=== PATIENT | male | born 1930 | race Caucasian/White ===

== ENCOUNTER 2020-01-09 17:42 | Inpatient (IN) ==
[2020-01-09 18:20] LABS: Hematocrit 38.2 % (37.5-50.1); Hemoglobin 12.3 g/dL (12.9-16.9); Mean Corpuscular HGB Conc 32.2 g/dL (31.6-35.5); Mean Corpuscular Hemoglobin 31.7 pg (28.0-33.3); Mean Corpuscular Volume 98.5 fL (83.0-100.0); Platelet Count 309 K/mcL (140-400); Red Blood Count 3.88 M/mcL (4.19-5.50); Red Cell Distribution Width 13.2 % (11.5-14.5); White Blood Count 7.1 K/mcL (4.3-11.1)
[2020-01-09 18:40] LABS: BUN/Creatinine Ratio 40 (6-26); Blood Urea Nitrogen 38 mg/dL (8-23); Calcium 9.8 mg/dL (8.6-10.3); Carbon Dioxide 31 mEq/L (23-29); Chloride 98 mEq/L (98-107); Glucose 128 mg/dL (70-105); Osmolality,Calculated 297 (280-300); Potassium 4.1 mEq/L (3.5-5.1); Sodium 138 mEq/L (136-145); Troponin I < 0.03 ng/mL (< 0.04); eGFR For African Americans > 60 (> 60); eGFR For Non-African Americans > 60 (> 60)
[2020-01-09 19:18] LABS: Bilirubin,Urine Negative (Negative); Blood,Urine Negative (Negative); Clarity,Urine Clear (Clear); Color,Urine Light-Yellow (Yellow); Glucose,Urine (UA) Normal (Normal); Ketones,Urine Negative (Negative); Leukocyte Esterase,Urine Negative (Negative); Nitrite,Urine Negative (Negative); PH,Urine 6.5 pH Units (5.0-8.0); Protein,Urine Negative (Neg-Trace); Specific Gravity,Urine 1.026 (1.010-1.025)
[2020-01-09] MEDS ORDERED: Naloxone 0.4 MG/ML INJ IVP PRN (21:45)
[2020-01-10 03:21] LABS: Hematocrit 37.3 % (37.5-50.1); Mean Corpuscular HGB Conc 32.2 g/dL (31.6-35.5); Mean Corpuscular Volume 99.5 fL (83.0-100.0); Mean Platelet Volume 9.2 fL (9.4-12.4); Platelet Count 315 K/mcL (140-400); Red Blood Count 3.75 M/mcL (4.19-5.50); White Blood Count 7.7 K/mcL (4.3-11.1)
[2020-01-10 03:44] LABS: BUN/Creatinine Ratio 38 (6-26); Blood Urea Nitrogen 32 mg/dL (8-23); Calcium 9.5 mg/dL (8.6-10.3); Carbon Dioxide 29 mEq/L (23-29); Chloride 99 mEq/L (98-107); Glucose 126 mg/dL (70-105); Magnesium 1.8 mg/dL (1.6-2.6); Osmolality,Calculated 294 (280-300); Phosphorous 3.6 mg/dL (2.7-4.5); Potassium 3.7 mEq/L (3.5-5.1); Sodium 138 mEq/L (136-145); eGFR For African Americans > 60 (> 60); eGFR For Non-African Americans > 60 (> 60)
[2020-01-10] MEDS: PARoxetine 20 MG TABLET PO SCH (14:49)
[2020-01-10] MEDS ORDERED: Finasteride 5 MG TABLET PO SCH (21:00)
[2020-01-10] MEDS ORDERED: Ondansetron 4 MG/2 ML VIAL IVP ONE (22:01)
[2020-01-11 04:37] LABS: Basophils % 0.5 %; Eosinophils # 0.2 K/mcL (0.0-0.6); Eosinophils % 2.6 %; Hematocrit 37.3 % (37.5-50.1); Immature Granulocytes % 0.1 % (0-4); Lymphocytes # 1.7 K/mcL (0.6-4.6); Lymphocytes % 21.5 %; Mean Corpuscular HGB Conc 32.2 g/dL (31.6-35.5); Mean Corpuscular Hemoglobin 31.2 pg (28.0-33.3); Mean Corpuscular Volume 96.9 fL (83.0-100.0); Mean Platelet Volume 9.1 fL (9.4-12.4); Monocytes # 1.1 K/mcL (0.0-1.3); Monocytes % 13.9 %; Neutrophils # 4.9 K/mcL (1.6-8.9); Platelet Count 327 K/mcL (140-400); Red Blood Count 3.85 M/mcL (4.19-5.50); Red Cell Distribution Width 13.1 % (11.5-14.5); Segmented Neutrophils % 61.4 %
[2020-01-11 04:53] LABS: BUN/Creatinine Ratio 35 (6-26); Blood Urea Nitrogen 33 mg/dL (8-23); Calcium 9.2 mg/dL (8.6-10.3); Carbon Dioxide 28 mEq/L (23-29); Chloride 101 mEq/L (98-107); Glucose 125 mg/dL (70-105); Osmolality,Calculated 295 (280-300); Potassium 3.8 mEq/L (3.5-5.1); Sodium 138 mEq/L (136-145); eGFR For African Americans > 60 (> 60); eGFR For Non-African Americans > 60 (> 60)
[2020-01-11] MEDS: PARoxetine 20 MG TABLET PO SCH (08:42)
[2020-01-11] MEDS ORDERED: *HR* Propofol 200 MG/20 ML VIAL IVP ONE (12:58)
[2020-01-11] MEDS ORDERED: Lidocaine -MPF 2% 2 ML VIAL ONE (12:58)
[2020-01-11] MEDS ORDERED: *HR* Succinylcholine 200 MG/10 ML VIAL IVP ONE (12:58)
[2020-01-11] MEDS ORDERED: *HR* Rocuronium Bromide 50 MG/5 ML VIAL ONE (12:58)
[2020-01-11] MEDS ORDERED: *HR* FentaNYL (PF) 100 MCG/2 ML VIAL ONE ×2 (12:58→14:33)
[2020-01-11] MEDS ORDERED: Vancomycin 1,000 MG VIAL ONE (13:34)
[2020-01-11] MEDS ORDERED: Ethanol\\Acetic Acid\\Na Ace\\Ben 1,000 ML IRRIG.SOLN IR ONE (13:34)
[2020-01-11] MEDS ORDERED: Lidocaine HCL 4 ML Topical Solution (Laryng-O-Jet Kit Sterile Pak) TP ONE (13:37)
[2020-01-11] MEDS ORDERED: *HR* PHENYLEPHRINE 1,000 MCG/10 ML SYRINGE IVP ONE (14:05)
[2020-01-11] MEDS ORDERED: Tranexamic Acid 1,000 MG/10 ML VIAL ONE (14:10)
[2020-01-11] MEDS ORDERED: ceFAZolin 2,000 MG in Water for inj. (sterile) 20 ML IVP ONE (14:24)
[2020-01-11] MEDS ORDERED: Ondansetron 4 MG/2 ML VIAL ONE (14:29)
[2020-01-11] MEDS ORDERED: Dexamethasone 4 MG/ML VIAL ONE (14:29)
[2020-01-11] MEDS ORDERED: *HR* HYDROMORPHONE 2 MG/ML VIAL ONE (15:46)
[2020-01-11] MEDS ORDERED: *HR* Labetalol 20 MG/4 ML SYRINGE IVP ONE (16:04)
[2020-01-11 17:14] LABS: Hematocrit 38.7 % (37.5-50.1); Hemoglobin 12.2 g/dL (12.9-16.9)
[2020-01-11] MEDS ORDERED: Dextrose Gel 15 GM/37.5 ML TUBE PO PRN ×2 (17:23)
[2020-01-11] MEDS ORDERED: Naloxone 0.4 MG/ML INJ IVP PRN (17:23)
[2020-01-11] MEDS ORDERED: MOM Conc 10 ML UD.LIQ PO PRN (17:23)
[2020-01-11] MEDS ORDERED: *HR* Promethazine 25 MG/ML VIAL IVP PRN (17:23)
[2020-01-11] MEDS ORDERED: *HR* Dextrose 50 % in Water (Vial) 50 ML VIAL IVP PRN (17:23)
[2020-01-11] MEDS ORDERED: *HR* OxyCODONE Immed Rel 5 MG TABLET PO PRN (17:23)
[2020-01-11] MEDS ORDERED: D5% in Water 1,000 ML IVC PRN (17:23)
[2020-01-11] MEDS ORDERED: Sennosides 8.6 MG TABLET PO PRN (17:23)
[2020-01-11] MEDS ORDERED: Ondansetron 4 MG/2 ML VIAL IVP PRN (17:23)
[2020-01-11] MEDS ORDERED: HYDROcodone BIT/Homatropine 5 MG TABLET PO PRN (17:23)
[2020-01-11] MEDS ORDERED: Ringers Solution, Lactated 1,000 ML IVC SCH (17:23)
[2020-01-11] MEDS: Insulin LISPRO 300 UNITS/3 ML VIAL SQ SCH ×2 (17:53→23:57)
[2020-01-11] MEDS: Ascorbic Acid 500 MG TABLET PO SCH (17:53)
[2020-01-11] MEDS ORDERED: Haloperidol Lactate 5 MG/ML VIAL IM PRN (21:27)
[2020-01-11] MEDS: CeFAZolin 2 GM/120 ML BAG IVPB SCH (21:51)
[2020-01-12] MEDS: Finasteride 5 MG TABLET PO SCH ×2 (00:41→20:02)
[2020-01-12] MEDS: CeFAZolin 2 GM/120 ML BAG IVPB SCH (07:09)
[2020-01-12] MEDS: Insulin LISPRO 300 UNITS/3 ML VIAL SQ SCH ×4 (08:12→19:59)
[2020-01-12] MEDS: Ascorbic Acid 500 MG TABLET PO SCH ×2 (08:22→16:10)
[2020-01-12] MEDS: PARoxetine 20 MG TABLET PO SCH (08:23)
[2020-01-12] MEDS: Multivit/Ca/Min/Fe/FA 1 TAB TABLET PO SCH (08:23)
[2020-01-12] MEDS: Aspirin Enteric Coated 81 MG Tablet PO SCH (16:10)
[2020-01-13 02:13] LABS: Hematocrit 32.1 % (37.5-50.1); Mean Corpuscular HGB Conc 32.4 g/dL (31.6-35.5); Mean Corpuscular Hemoglobin 31.3 pg (28.0-33.3); Mean Corpuscular Volume 96.7 fL (83.0-100.0); Mean Platelet Volume 9.2 fL (9.4-12.4); Platelet Count 293 K/mcL (140-400); Red Blood Count 3.32 M/mcL (4.19-5.50); Red Cell Distribution Width 12.8 % (11.5-14.5); White Blood Count 10.7 K/mcL (4.3-11.1)
[2020-01-13 02:14] LABS: Hemoglobin 10.4 g/dL (12.9-16.9)
[2020-01-13 02:17] LABS: BUN/Creatinine Ratio 32 (6-26); Blood Urea Nitrogen 29 mg/dL (8-23); Calcium 8.6 mg/dL (8.6-10.3); Carbon Dioxide 25 mEq/L (23-29); Chloride 102 mEq/L (98-107); Glucose 137 mg/dL (70-105); Osmolality,Calculated 290 (280-300); Potassium 3.7 mEq/L (3.5-5.1); Sodium 136 mEq/L (136-145); eGFR For African Americans > 60 (> 60); eGFR For Non-African Americans > 60 (> 60)
[2020-01-13] MEDS: Insulin LISPRO 300 UNITS/3 ML VIAL SQ SCH ×4 (08:51→20:33)
[2020-01-13] MEDS: Aspirin Enteric Coated 81 MG Tablet PO SCH (08:51)
[2020-01-13] MEDS: Multivit/Ca/Min/Fe/FA 1 TAB TABLET PO SCH (08:52)
[2020-01-13] MEDS: Ascorbic Acid 500 MG TABLET PO SCH ×2 (08:52→16:53)
[2020-01-13] MEDS: PARoxetine 20 MG TABLET PO SCH (08:52)
[2020-01-13] MEDS ORDERED: Haloperidol Lactate 5 MG/ML VIAL IVP ONE (19:09)
[2020-01-13] MEDS: Finasteride 5 MG TABLET PO SCH (20:35)
[2020-01-14] MEDS: Insulin LISPRO 300 UNITS/3 ML VIAL SQ SCH (09:50)
[2020-01-14] MEDS: Ascorbic Acid 500 MG TABLET PO SCH (09:55)
[2020-01-14] MEDS: Aspirin Enteric Coated 81 MG Tablet PO SCH (09:55)
[2020-01-14] MEDS: Multivit/Ca/Min/Fe/FA 1 TAB TABLET PO SCH (09:55)
[2020-01-14] MEDS: PARoxetine 20 MG TABLET PO SCH (09:55)
[2020-01-14 11:08] VITALS: BP 145/87
== END 2020-01-14 13:50 | disposition home health service (06) | DRG 468 ==
LOC: 3ANU 17:42 → EMEROOARM 17:42 → SUATTDRO 21:26 → 3NENU 21:38
PROVIDERS: ADMIT Internal Medicine; ATTEND Internal Medicine

== ENCOUNTER 2020-03-12 16:10 | Inpatient (IN) ==
[2020-03-12] MEDS ORDERED: *HR* Propofol 200 MG/20 ML VIAL IVP ONE (16:44)
[2020-03-12 18:29] LABS: Basophils % 0.5 %; Eosinophils # 0.2 K/mcL (0.0-0.6); Eosinophils % 2.3 %; Hematocrit 35.7 % (37.5-50.1); Hemoglobin 11.3 g/dL (12.9-16.9); Immature Granulocytes % 0.2 % (0-4); Lymphocytes % 12.1 %; Mean Corpuscular HGB Conc 31.7 g/dL (31.6-35.5); Mean Corpuscular Hemoglobin 31.1 pg (28.0-33.3); Mean Corpuscular Volume 98.3 fL (83.0-100.0); Mean Platelet Volume 9.5 fL (9.4-12.4); Monocytes # 0.9 K/mcL (0.0-1.3); Monocytes % 10.6 %; Neutrophils # 6.4 K/mcL (1.6-8.9); Platelet Count 237 K/mcL (140-400); Red Blood Count 3.63 M/mcL (4.19-5.50); Red Cell Distribution Width 12.8 % (11.5-14.5); Segmented Neutrophils % 74.3 %; White Blood Count 8.6 K/mcL (4.3-11.1)
[2020-03-12 18:45] LABS: BUN/Creatinine Ratio 30 (6-26); Blood Urea Nitrogen 25 mg/dL (8-23); Calcium 9.4 mg/dL (8.6-10.3); Carbon Dioxide 30 mEq/L (23-29); Chloride 103 mEq/L (98-107); Glucose 116 mg/dL (70-105); Osmolality,Calculated 293 (280-300); Potassium 3.7 mEq/L (3.5-5.1); Sodium 139 mEq/L (136-145); eGFR For African Americans > 60 (> 60); eGFR For Non-African Americans > 60 (> 60)
[2020-03-12] MEDS ORDERED: Ondansetron 4 MG/2 ML VIAL IVP PRN (20:24)
[2020-03-12] MEDS ORDERED: Ibuprofen 400 MG TABLET PO PRN (20:24)
[2020-03-12] MEDS ORDERED: Ketorolac 30 MG/ML VIAL IVP PRN (20:24)
[2020-03-12 20:42] LABS: Prothrombin Time 11.8 Seconds (9.4-12.1)
[2020-03-12] MEDS ORDERED: Naloxone 0.4 MG/ML INJ IVP PRN (20:42)
[2020-03-12 20:45] LABS: Activated Partial Thrombo Time 31.5 Seconds (26.0-36.0)
[2020-03-12 20:47] LABS: Magnesium 1.7 mg/dL (1.6-2.6); Phosphorous 3.2 mg/dL (2.7-4.5)
[2020-03-12] MEDS ORDERED: Acetaminophen 325 MG TABLET PO PRN (21:20)
[2020-03-12] MEDS: 0.9 % Sodium Chloride 1,000 ML IVC SCH (23:32)
[2020-03-13 06:19] LABS: Basophils % 0.4 %; Eosinophils # 0.2 K/mcL (0.0-0.6); Eosinophils % 2.3 %; Hematocrit 34.3 % (37.5-50.1); Immature Granulocytes % 0.1 % (0-4); Lymphocytes # 1.4 K/mcL (0.6-4.6); Lymphocytes % 18.9 %; Mean Corpuscular HGB Conc 32.1 g/dL (31.6-35.5); Mean Corpuscular Hemoglobin 31.2 pg (28.0-33.3); Mean Corpuscular Volume 97.2 fL (83.0-100.0); Mean Platelet Volume 9.4 fL (9.4-12.4); Monocytes # 0.9 K/mcL (0.0-1.3); Monocytes % 12.5 %; Neutrophils # 4.8 K/mcL (1.6-8.9); Platelet Count 226 K/mcL (140-400); Red Blood Count 3.53 M/mcL (4.19-5.50); Segmented Neutrophils % 65.8 %; White Blood Count 7.4 K/mcL (4.3-11.1)
[2020-03-13 06:36] LABS: Magnesium 1.6 mg/dL (1.6-2.6); Phosphorous 3.3 mg/dL (2.7-4.5)
[2020-03-13 06:38] LABS: BUN/Creatinine Ratio 26 (6-26); Blood Urea Nitrogen 21 mg/dL (8-23); Calcium 8.9 mg/dL (8.6-10.3); Carbon Dioxide 29 mEq/L (23-29); Chloride 104 mEq/L (98-107); Glucose 116 mg/dL (70-105); Osmolality,Calculated 292 (280-300); Potassium 3.8 mEq/L (3.5-5.1); Sodium 139 mEq/L (136-145); eGFR For African Americans > 60 (> 60); eGFR For Non-African Americans > 60 (> 60)
[2020-03-13] MEDS: *HR* Heparin 5,000 UNIT/ML VIAL SQ SCH ×2 (06:41→21:24)
[2020-03-13 14:16] LABS: Adenovirus Not Detected (Not Detect); Coronavirus 229E Not Detected (Not Detect); Coronavirus HKU1 Not Detected (Not Detect); Coronavirus NL63 Not Detected (Not Detect); Coronavirus OC43 Not Detected (Not Detect); Human Metapneumovirus Not Detected (Not Detect); Human Rhinovirus/Enterovirus Not Detected (Not Detect); Influenza A Subtype 2009 H1 Not Detected (Not Detect); Influenza B Not Detected (Not Detect); Parainfluenza Virus 1 Not Detected (Not Detect); Parainfluenza Virus 2 Not Detected (Not Detect); Parainfluenza Virus 3 Not Detected (Not Detect); Parainfluenza Virus 4 Not Detected (Not Detect); SARS-CoV-2 Not Detected (Not Detect)
[2020-03-13 14:17] LABS: Bordetella Pertussis Not Detected (Not Detect); Chlamydophila pneumoniae Not Detected (Not Detect); Mycoplasma pneumoniae Not Detected (Not Detect); Respiratory Syncytial Virus Not Detected (Not Detect)
[2020-03-13] MEDS ORDERED: Ethanol\\Acetic Acid\\Na Ace\\Ben 1,000 ML IRRIG.SOLN IR ONE (17:45)
[2020-03-13] MEDS ORDERED: Ondansetron 4 MG/2 ML VIAL ONE (17:53)
[2020-03-13] MEDS ORDERED: *HR* PHENYLEPHRINE 1,000 MCG/10 ML SYRINGE IVP ONE (17:53)
[2020-03-13] MEDS ORDERED: Lidocaine -MPF 4% 5 ML AMPUL ONE (17:53)
[2020-03-13] MEDS ORDERED: *HR* Propofol 200 MG/20 ML VIAL IVP ONE (17:53)
[2020-03-13] MEDS ORDERED: Lidocaine -MPF 2% 2 ML VIAL ONE (17:53)
[2020-03-13] MEDS ORDERED: *HR* FentaNYL (PF) 100 MCG/2 ML VIAL ONE (17:54)
[2020-03-13] MEDS ORDERED: *HR* HYDROmorphone PF 0.5 MG/0.5 ML SYRINGE IVP PRN (18:08)
[2020-03-13] MEDS ORDERED: Tranexamic Acid 1,000 MG/10 ML VIAL ONE (18:35)
[2020-03-13] MEDS ORDERED: Vancomycin 1,000 MG VIAL ONE (18:36)
[2020-03-13] MEDS ORDERED: ceFAZolin 2,000 MG in Water for inj. (sterile) 20 ML IVP ONE (18:56)
[2020-03-13] MEDS ORDERED: *HR* HYDROMORPHONE 2 MG/ML VIAL ONE (19:00)
[2020-03-13] MEDS ORDERED: Dexamethasone 4 MG/ML VIAL ONE (19:05)
[2020-03-13 20:15] LABS: Hematocrit 36.1 % (37.5-50.1); Hemoglobin 11.5 g/dL (12.9-16.9)
[2020-03-13] MEDS ORDERED: Naloxone 0.4 MG/ML INJ IVP PRN ×2 (20:50)
[2020-03-13] MEDS ORDERED: Ondansetron 4 MG/2 ML VIAL IVP PRN ×2 (20:50)
[2020-03-13] MEDS ORDERED: Ringers Solution, Lactated 1,000 ML IVC SCH (20:50)
[2020-03-13] MEDS ORDERED: *HR* Promethazine 25 MG/ML VIAL IVP PRN (20:50)
[2020-03-13] MEDS ORDERED: Acetaminophen 325 MG TABLET PO PRN (20:50)
[2020-03-13] MEDS ORDERED: Sennosides 8.6 MG TABLET PO PRN (20:50)
[2020-03-13] MEDS ORDERED: MOM Conc 10 ML UD.LIQ PO PRN (20:50)
[2020-03-13] MEDS ORDERED: Finasteride 5 MG TABLET PO SCH (21:00)
[2020-03-13] MEDS: 0.9 % Sodium Chloride 1,000 ML IVC SCH (21:24)
[2020-03-13] MEDS ORDERED: Vancomycin 1,250 MG/262.5 ML IV.SOLN IVPB ONE (22:00)
[2020-03-13] MEDS: Finasteride 5 MG TABLET PO SCH (22:03)
[2020-03-13] MEDS: CeFAZolin 2 GM/120 ML BAG IVPB SCH (23:15)
[2020-03-14] MEDS: Ascorbic Acid 500 MG TABLET PO SCH ×2 (08:49→18:55)
[2020-03-14] MEDS: Losartan/HCTZ 50-12.5 TABLET PO SCH (08:49)
[2020-03-14] MEDS: PARoxetine 20 MG TABLET PO SCH (08:49)
[2020-03-14] MEDS: Multivit/Ca/Min/Fe/FA 1 TAB TABLET PO SCH (08:50)
[2020-03-14] MEDS: CeFAZolin 2 GM/120 ML BAG IVPB SCH (08:50)
[2020-03-14] MEDS ORDERED: Mirabegron [Myrbetriq] 50 MG PO SCH (09:00)
[2020-03-14] MEDS ORDERED: Losartan/HCTZ 50-12.5 TABLET PO SCH (09:00)
[2020-03-14] MEDS ORDERED: Multivit/Ca/Min/Fe/FA 1 TAB TABLET PO SCH ×2 (09:00)
[2020-03-14] MEDS ORDERED: PARoxetine 20 MG TABLET PO SCH (09:00)
[2020-03-14] MEDS ORDERED: Aspirin Enteric Coated 81 MG Tablet PO SCH (09:00)
[2020-03-14 09:25] LABS: Basophils % 0.1 %; Hematocrit 35.9 % (37.5-50.1); Hemoglobin 11.4 g/dL (12.9-16.9); Immature Granulocytes % 0.6 % (0-4); Lymphocytes # 0.9 K/mcL (0.6-4.6); Lymphocytes % 6.9 %; Mean Corpuscular HGB Conc 31.8 g/dL (31.6-35.5); Mean Corpuscular Hemoglobin 31.4 pg (28.0-33.3); Mean Corpuscular Volume 98.9 fL (83.0-100.0); Mean Platelet Volume 9.8 fL (9.4-12.4); Monocytes # 1.3 K/mcL (0.0-1.3); Monocytes % 10.1 %; Neutrophils # 10.3 K/mcL (1.6-8.9); Platelet Count 229 K/mcL (140-400); Red Blood Count 3.63 M/mcL (4.19-5.50); Red Cell Distribution Width 13.1 % (11.5-14.5); Segmented Neutrophils % 82.3 %; White Blood Count 12.5 K/mcL (4.3-11.1)
[2020-03-14] MEDS: (Mirabegron [Myrbetriq] 50 MG) PO SCH (10:04)
[2020-03-14 10:49] LABS: BUN/Creatinine Ratio 29 (6-26); Blood Urea Nitrogen 25 mg/dL (8-23); Calcium 8.7 mg/dL (8.6-10.3); Carbon Dioxide 25 mEq/L (23-29); Chloride 102 mEq/L (98-107); Glucose 153 mg/dL (70-105); Osmolality,Calculated 293 (280-300); Potassium 4.6 mEq/L (3.5-5.1); Sodium 138 mEq/L (136-145); eGFR For African Americans > 60 (> 60); eGFR For Non-African Americans > 60 (> 60)
[2020-03-14] MEDS: Aspirin Enteric Coated 81 MG Tablet PO SCH (18:55)
[2020-03-14] MEDS: Finasteride 5 MG TABLET PO SCH (21:24)
[2020-03-15] MEDS: Losartan/HCTZ 50-12.5 TABLET PO SCH (08:55)
[2020-03-15] MEDS: PARoxetine 20 MG TABLET PO SCH (08:56)
[2020-03-15] MEDS: Aspirin Enteric Coated 81 MG Tablet PO SCH (08:56)
[2020-03-15] MEDS: Multivit/Ca/Min/Fe/FA 1 TAB TABLET PO SCH (08:59)
[2020-03-15] MEDS: Ascorbic Acid 500 MG TABLET PO SCH (08:59)
[2020-03-15] MEDS: (Mirabegron [Myrbetriq] 50 MG) PO SCH (09:00)
[2020-03-15 10:38] LABS: Basophils % 0.2 %; Eosinophils # 0.1 K/mcL (0.0-0.6); Eosinophils % 1.3 %; Hematocrit 33.7 % (37.5-50.1); Hemoglobin 10.7 g/dL (12.9-16.9); Immature Granulocytes % 0.3 % (0-4); Lymphocytes # 1.7 K/mcL (0.6-4.6); Lymphocytes % 17.7 %; Mean Corpuscular HGB Conc 31.8 g/dL (31.6-35.5); Mean Corpuscular Hemoglobin 31.8 pg (28.0-33.3); Mean Corpuscular Volume 100.3 fL (83.0-100.0); Mean Platelet Volume 9.8 fL (9.4-12.4); Monocytes # 1.4 K/mcL (0.0-1.3); Monocytes % 14.9 %; Neutrophils # 6.1 K/mcL (1.6-8.9); Platelet Count 215 K/mcL (140-400); Red Blood Count 3.36 M/mcL (4.19-5.50); Red Cell Distribution Width 13.2 % (11.5-14.5); Segmented Neutrophils % 65.6 %; White Blood Count 9.4 K/mcL (4.3-11.1)
[2020-03-15 10:46] LABS: BUN/Creatinine Ratio 33 (6-26); Blood Urea Nitrogen 33 mg/dL (8-23); Calcium 8.8 mg/dL (8.6-10.3); Carbon Dioxide 27 mEq/L (23-29); Chloride 99 mEq/L (98-107); Glucose 138 mg/dL (70-105); Osmolality,Calculated 285 (280-300); Potassium 3.6 mEq/L (3.5-5.1); Sodium 133 mEq/L (136-145); eGFR For African Americans > 60 (> 60); eGFR For Non-African Americans > 60 (> 60)
[2020-03-15 10:59] VITALS: BP 112/55
[2020-03-15] MEDS ORDERED: FLU Vac QV 20-21 (6Month+)/PF 0.5 ML SYRINGE IM ONE (14:34)
== END 2020-03-15 15:23 | disposition home health service (06) | DRG 468 ==
LOC: 3NENU 16:10 → EMEROOARM 16:10 → SUATTDRO 18:58 → 3NENU 19:58
PROVIDERS: ADMIT Pharmacist; ATTEND Family Medicine

== ENCOUNTER 2020-03-15 18:08 | Observation (INO) ==
[2020-03-15] MEDS ORDERED: *HR* OxyCODONE/APAP 5/325 TABLET PO ONE (18:27)
[2020-03-15 19:21] LABS: Basophils % 0.3 %; Eosinophils # 0.2 K/mcL (0.0-0.6); Eosinophils % 1.6 %; Hematocrit 32.6 % (37.5-50.1); Hemoglobin 10.4 g/dL (12.9-16.9); Immature Granulocytes % 0.3 % (0-4); Lymphocytes # 0.8 K/mcL (0.6-4.6); Lymphocytes % 9.1 %; Mean Corpuscular HGB Conc 31.9 g/dL (31.6-35.5); Mean Corpuscular Hemoglobin 31.1 pg (28.0-33.3); Mean Corpuscular Volume 97.6 fL (83.0-100.0); Mean Platelet Volume 9.4 fL (9.4-12.4); Monocytes # 1.2 K/mcL (0.0-1.3); Platelet Count 224 K/mcL (140-400); Red Blood Count 3.34 M/mcL (4.19-5.50); Red Cell Distribution Width 13.1 % (11.5-14.5); Segmented Neutrophils % 75.7 %; White Blood Count 9.2 K/mcL (4.3-11.1)
[2020-03-15 19:29] LABS: BUN/Creatinine Ratio 33 (6-26); Blood Urea Nitrogen 34 mg/dL (8-23); Carbon Dioxide 28 mEq/L (23-29); Chloride 99 mEq/L (98-107); Glucose 152 mg/dL (70-105); Osmolality,Calculated 289 (280-300); Potassium 3.6 mEq/L (3.5-5.1); Sodium 134 mEq/L (136-145); eGFR For African Americans > 60 (> 60); eGFR For Non-African Americans > 60 (> 60)
[2020-03-15] MEDS ORDERED: Acetaminophen 325 MG TABLET PO PRN (21:06)
[2020-03-15] MEDS ORDERED: *HR* Promethazine 25 MG/ML VIAL IVP PRN (21:06)
[2020-03-15] MEDS ORDERED: Naloxone 0.4 MG/ML INJ IVP PRN (21:06)
[2020-03-15] MEDS: *HR* Enoxaparin 30 MG/0.3 ML SYRINGE SQ SCH (22:58)
[2020-03-15] MEDS: 0.9 % Sodium Chloride 1,000 ML IVC SCH (22:58)
[2020-03-16] MEDS: 0.9 % Sodium Chloride 1,000 ML IVC SCH (08:06)
[2020-03-16] MEDS: *HR* Enoxaparin 30 MG/0.3 ML SYRINGE SQ SCH (08:06)
[2020-03-16 08:20] LABS: Hemoglobin 9.7 g/dL (12.9-16.9); Mean Corpuscular HGB Conc 32.3 g/dL (31.6-35.5); Mean Corpuscular Hemoglobin 31.2 pg (28.0-33.3); Mean Corpuscular Volume 96.5 fL (83.0-100.0); Mean Platelet Volume 9.4 fL (9.4-12.4); Platelet Count 217 K/mcL (140-400); Red Blood Count 3.11 M/mcL (4.19-5.50); Red Cell Distribution Width 12.8 % (11.5-14.5); White Blood Count 7.4 K/mcL (4.3-11.1)
[2020-03-16 08:29] LABS: INR 1.3; Prothrombin Time 14.2 Seconds (9.4-12.1)
[2020-03-16 08:40] LABS: BUN/Creatinine Ratio 31 (6-26); Blood Urea Nitrogen 24 mg/dL (8-23); Calcium 8.7 mg/dL (8.6-10.3); Carbon Dioxide 29 mEq/L (23-29); Chloride 102 mEq/L (98-107); Glucose 118 mg/dL (70-105); Magnesium 1.7 mg/dL (1.6-2.6); Osmolality,Calculated 291 (280-300); Phosphorous 2.5 mg/dL (2.7-4.5); Potassium 3.3 mEq/L (3.5-5.1); Sodium 138 mEq/L (136-145); eGFR For African Americans > 60 (> 60); eGFR For Non-African Americans > 60 (> 60)
[2020-03-16] MEDS ORDERED: Potassium Chloride Elixir 20 MEQ/15 ML UDC PO ONE (10:59)
[2020-03-16] MEDS ORDERED: Dextrose Gel 15 GM/37.5 ML TUBE PO PRN ×2 (16:08)
[2020-03-16] MEDS ORDERED: D5% in Water 1,000 ML IVC PRN (16:08)
[2020-03-16] MEDS ORDERED: *HR* Dextrose 50 % in Water (Vial) 50 ML VIAL IVP PRN (16:08)
[2020-03-16] MEDS: Insulin LISPRO 300 UNITS/3 ML VIAL SQ SCH ×2 (16:13→21:53)
[2020-03-17 05:31] LABS: Hematocrit 28.4 % (37.5-50.1); Hemoglobin 9.2 g/dL (12.9-16.9); Mean Corpuscular HGB Conc 32.4 g/dL (31.6-35.5); Mean Corpuscular Hemoglobin 31.9 pg (28.0-33.3); Mean Corpuscular Volume 98.6 fL (83.0-100.0); Mean Platelet Volume 9.6 fL (9.4-12.4); Platelet Count 231 K/mcL (140-400); Red Blood Count 2.88 M/mcL (4.19-5.50); Red Cell Distribution Width 12.8 % (11.5-14.5); White Blood Count 6.8 K/mcL (4.3-11.1)
[2020-03-17 05:46] LABS: BUN/Creatinine Ratio 31 (6-26); Blood Urea Nitrogen 22 mg/dL (8-23); Calcium 8.3 mg/dL (8.6-10.3); Carbon Dioxide 29 mEq/L (23-29); Chloride 105 mEq/L (98-107); Glucose 111 mg/dL (70-105); Osmolality,Calculated 294 (280-300); Potassium 3.3 mEq/L (3.5-5.1); Sodium 140 mEq/L (136-145); eGFR For African Americans > 60 (> 60); eGFR For Non-African Americans > 60 (> 60)
[2020-03-17] MEDS ORDERED: Potassium Chloride Elixir 20 MEQ/15 ML UDC PO ONE (07:15)
[2020-03-17] MEDS: Insulin LISPRO 300 UNITS/3 ML VIAL SQ SCH ×4 (09:21→21:03)
[2020-03-17] MEDS: *HR* Enoxaparin 30 MG/0.3 ML SYRINGE SQ SCH (09:33)
[2020-03-18 05:39] LABS: BUN/Creatinine Ratio 30 (6-26); Blood Urea Nitrogen 20 mg/dL (8-23); Calcium 8.5 mg/dL (8.6-10.3); Carbon Dioxide 26 mEq/L (23-29); Chloride 105 mEq/L (98-107); Glucose 123 mg/dL (70-105); Hematocrit 30.3 % (37.5-50.1); Hemoglobin 9.8 g/dL (12.9-16.9); Mean Corpuscular HGB Conc 32.3 g/dL (31.6-35.5); Mean Corpuscular Hemoglobin 31.2 pg (28.0-33.3); Mean Corpuscular Volume 96.5 fL (83.0-100.0); Mean Platelet Volume 9.5 fL (9.4-12.4); Osmolality,Calculated 290 (280-300); Platelet Count 266 K/mcL (140-400); Potassium 3.7 mEq/L (3.5-5.1); Red Blood Count 3.14 M/mcL (4.19-5.50); Red Cell Distribution Width 12.8 % (11.5-14.5); Sodium 138 mEq/L (136-145); White Blood Count 7.1 K/mcL (4.3-11.1); eGFR For African Americans > 60 (> 60); eGFR For Non-African Americans > 60 (> 60)
[2020-03-18] MEDS: *HR* Enoxaparin 40 MG/0.4 ML SYRINGE SQ SCH (05:56)
[2020-03-18] MEDS: Insulin LISPRO 300 UNITS/3 ML VIAL SQ SCH ×4 (09:01→21:00)
[2020-03-19] MEDS: *HR* Enoxaparin 40 MG/0.4 ML SYRINGE SQ SCH (05:44)
[2020-03-19] MEDS: Insulin LISPRO 300 UNITS/3 ML VIAL SQ SCH ×4 (08:02→21:41)
[2020-03-19] MEDS ORDERED: NON-FORMULARY MEDICATION 1 EACH EACH (Losartan/Hydrochlorothiazide [Hyzaar 100-12.5 Tablet PO SCH (09:00)
[2020-03-19] MEDS: Multivit/Ca/Min/Fe/FA 1 TAB TABLET PO SCH (09:08)
[2020-03-19] MEDS: PARoxetine 20 MG TABLET PO SCH (09:08)
[2020-03-19] MEDS: hydroCHLOROthiazide 25 MG TABLET PO SCH (09:08)
[2020-03-19 09:50] LABS: BUN/Creatinine Ratio 28 (6-26); Blood Urea Nitrogen 22 mg/dL (8-23); Calcium 9.1 mg/dL (8.6-10.3); Carbon Dioxide 29 mEq/L (23-29); Chloride 103 mEq/L (98-107); Glucose 121 mg/dL (70-105); Osmolality,Calculated 293 (280-300); Potassium 3.8 mEq/L (3.5-5.1); Sodium 139 mEq/L (136-145); eGFR For African Americans > 60 (> 60); eGFR For Non-African Americans > 60 (> 60)
[2020-03-19 10:55] LABS: Hematocrit 34.7 % (37.5-50.1); Hemoglobin 11.1 g/dL (12.9-16.9); Mean Corpuscular Hemoglobin 31.4 pg (28.0-33.3); Mean Platelet Volume 9.2 fL (9.4-12.4); Platelet Count 316 K/mcL (140-400); Red Blood Count 3.54 M/mcL (4.19-5.50); Red Cell Distribution Width 12.8 % (11.5-14.5); White Blood Count 7.8 K/mcL (4.3-11.1)
[2020-03-19] MEDS: Finasteride 5 MG TABLET PO SCH (21:41)
[2020-03-20] MEDS: *HR* Enoxaparin 40 MG/0.4 ML SYRINGE SQ SCH (04:43)
[2020-03-20] MEDS: Insulin LISPRO 300 UNITS/3 ML VIAL SQ SCH ×4 (07:32→21:05)
[2020-03-20] MEDS: PARoxetine 20 MG TABLET PO SCH (07:40)
[2020-03-20] MEDS: hydroCHLOROthiazide 25 MG TABLET PO SCH (07:40)
[2020-03-20] MEDS: Multivit/Ca/Min/Fe/FA 1 TAB TABLET PO SCH (07:41)
[2020-03-20] MEDS: Finasteride 5 MG TABLET PO SCH (21:01)
[2020-03-21 02:16] LABS: Hematocrit 31.5 % (37.5-50.1); Hemoglobin 10.2 g/dL (12.9-16.9); Mean Corpuscular HGB Conc 32.4 g/dL (31.6-35.5); Mean Corpuscular Volume 95.7 fL (83.0-100.0); Mean Platelet Volume 9.2 fL (9.4-12.4); Platelet Count 320 K/mcL (140-400); Red Blood Count 3.29 M/mcL (4.19-5.50); Red Cell Distribution Width 12.9 % (11.5-14.5); White Blood Count 7.4 K/mcL (4.3-11.1)
[2020-03-21 02:35] LABS: BUN/Creatinine Ratio 28 (6-26); Blood Urea Nitrogen 29 mg/dL (8-23); Calcium 8.7 mg/dL (8.6-10.3); Carbon Dioxide 26 mEq/L (23-29); Chloride 102 mEq/L (98-107); Glucose 122 mg/dL (70-105); Osmolality,Calculated 293 (280-300); Potassium 3.8 mEq/L (3.5-5.1); Sodium 138 mEq/L (136-145); eGFR For African Americans > 60 (> 60); eGFR For Non-African Americans > 60 (> 60)
[2020-03-21] MEDS: *HR* Enoxaparin 40 MG/0.4 ML SYRINGE SQ SCH (05:39)
[2020-03-21] MEDS: Insulin LISPRO 300 UNITS/3 ML VIAL SQ SCH ×2 (08:39→11:49)
[2020-03-21] MEDS: hydroCHLOROthiazide 25 MG TABLET PO SCH (08:44)
[2020-03-21] MEDS: Multivit/Ca/Min/Fe/FA 1 TAB TABLET PO SCH (08:45)
[2020-03-21] MEDS: PARoxetine 20 MG TABLET PO SCH (08:45)
[2020-03-21 11:21] VITALS: BP 103/61
== END 2020-03-21 16:06 ==
LOC: 3BNU 18:08 → EMEROOARM 18:08 → SUATTDRO 20:36 → 3BNU 21:01
PROVIDERS: ADMIT Internal Medicine; ATTEND Nurse Practitioner Adult Health

== ENCOUNTER 2020-03-29 12:01 | Observation (INO) ==
[2020-03-29 13:21] LABS: Basophils % 0.5 %; Eosinophils # 0.2 K/mcL (0.0-0.6); Eosinophils % 1.9 %; Hematocrit 34.9 % (37.5-50.1); Immature Granulocytes % 0.5 % (0-4); Lymphocytes # 1.7 K/mcL (0.6-4.6); Lymphocytes % 22.4 %; Mean Corpuscular HGB Conc 31.5 g/dL (31.6-35.5); Mean Corpuscular Hemoglobin 30.4 pg (28.0-33.3); Mean Corpuscular Volume 96.4 fL (83.0-100.0); Mean Platelet Volume 9.2 fL (9.4-12.4); Monocytes # 0.7 K/mcL (0.0-1.3); Monocytes % 8.4 %; Neutrophils # 5.1 K/mcL (1.6-8.9); Platelet Count 396 K/mcL (140-400); Red Blood Count 3.62 M/mcL (4.19-5.50); Red Cell Distribution Width 13.2 % (11.5-14.5); Segmented Neutrophils % 66.3 %; White Blood Count 7.8 K/mcL (4.3-11.1)
[2020-03-29 13:30] LABS: BUN/Creatinine Ratio 36 (6-26); Blood Urea Nitrogen 35 mg/dL (8-23); Calcium 9.5 mg/dL (8.6-10.3); Carbon Dioxide 29 mEq/L (23-29); Chloride 103 mEq/L (98-107); Glucose 133 mg/dL (70-105); Osmolality,Calculated 294 (280-300); Potassium 4.3 mEq/L (3.5-5.1); Sodium 137 mEq/L (136-145); eGFR For African Americans > 60 (> 60); eGFR For Non-African Americans > 60 (> 60)
[2020-03-29] MEDS ORDERED: Naloxone 0.4 MG/ML INJ IVP PRN (15:29)
[2020-03-29] MEDS: 0.9 % Sodium Chloride 1,000 ML IVC SCH (16:02)
[2020-03-29] MEDS: *HR* OxyCODONE/APAP 10/325 TABLET PO PRN (16:04)
[2020-03-30] MEDS: 0.9 % Sodium Chloride 1,000 ML IVC SCH ×2 (05:31→18:30)
[2020-03-30] MEDS: *HR* OxyCODONE/APAP 10/325 TABLET PO PRN (06:28)
[2020-03-30 09:07] LABS: Basophils % 0.6 %; Eosinophils # 0.2 K/mcL (0.0-0.6); Eosinophils % 3.4 %; Hematocrit 32.6 % (37.5-50.1); Hemoglobin 10.3 g/dL (12.9-16.9); Immature Granulocytes % 0.3 % (0-4); Lymphocytes # 1.5 K/mcL (0.6-4.6); Lymphocytes % 22.3 %; Mean Corpuscular HGB Conc 31.6 g/dL (31.6-35.5); Mean Corpuscular Hemoglobin 31.3 pg (28.0-33.3); Mean Corpuscular Volume 99.1 fL (83.0-100.0); Mean Platelet Volume 9.2 fL (9.4-12.4); Monocytes # 0.7 K/mcL (0.0-1.3); Monocytes % 11.1 %; Neutrophils # 4.2 K/mcL (1.6-8.9); Platelet Count 367 K/mcL (140-400); Red Blood Count 3.29 M/mcL (4.19-5.50); Red Cell Distribution Width 13.1 % (11.5-14.5); Segmented Neutrophils % 62.3 %; White Blood Count 6.7 K/mcL (4.3-11.1)
[2020-03-30 09:28] LABS: BUN/Creatinine Ratio 34 (6-26); Blood Urea Nitrogen 29 mg/dL (8-23); Calcium 8.9 mg/dL (8.6-10.3); Carbon Dioxide 27 mEq/L (23-29); Chloride 105 mEq/L (98-107); Glucose 118 mg/dL (70-105); Osmolality,Calculated 291 (280-300); Potassium 4.1 mEq/L (3.5-5.1); Sodium 137 mEq/L (136-145); eGFR For African Americans > 60 (> 60); eGFR For Non-African Americans > 60 (> 60)
[2020-03-30] MEDS: Finasteride 5 MG TABLET PO SCH (20:05)
[2020-03-31 02:48] LABS: Hematocrit 33.1 % (37.5-50.1); Hemoglobin 10.5 g/dL (12.9-16.9); Mean Corpuscular HGB Conc 31.7 g/dL (31.6-35.5); Mean Corpuscular Hemoglobin 31.2 pg (28.0-33.3); Mean Corpuscular Volume 98.2 fL (83.0-100.0); Mean Platelet Volume 9.4 fL (9.4-12.4); Platelet Count 359 K/mcL (140-400); Red Blood Count 3.37 M/mcL (4.19-5.50); White Blood Count 8.6 K/mcL (4.3-11.1)
[2020-03-31 02:51] LABS: BUN/Creatinine Ratio 30 (6-26); Blood Urea Nitrogen 28 mg/dL (8-23); Calcium 8.7 mg/dL (8.6-10.3); Carbon Dioxide 26 mEq/L (23-29); Chloride 106 mEq/L (98-107); Glucose 127 mg/dL (70-105); Magnesium 1.6 mg/dL (1.6-2.6); Osmolality,Calculated 293 (280-300); Potassium 3.9 mEq/L (3.5-5.1); Sodium 138 mEq/L (136-145); eGFR For African Americans > 60 (> 60); eGFR For Non-African Americans > 60 (> 60)
[2020-03-31] MEDS: 0.9 % Sodium Chloride 1,000 ML IVC SCH ×2 (08:09→23:47)
[2020-03-31] MEDS: Aspirin Enteric Coated 81 MG Tablet PO SCH (08:11)
[2020-03-31] MEDS: Losartan/HCTZ 50-12.5 TABLET PO SCH (08:11)
[2020-03-31] MEDS: PARoxetine 20 MG TABLET PO SCH (08:11)
[2020-03-31] MEDS: Finasteride 5 MG TABLET PO SCH (20:39)
[2020-03-31] MEDS: *HR* OxyCODONE/APAP 10/325 TABLET PO PRN (20:39)
[2020-04-01 07:39] LABS: Hematocrit 33.2 % (37.5-50.1); Hemoglobin 10.5 g/dL (12.9-16.9); Mean Corpuscular HGB Conc 31.6 g/dL (31.6-35.5); Mean Corpuscular Volume 97.9 fL (83.0-100.0); Mean Platelet Volume 9.4 fL (9.4-12.4); Platelet Count 323 K/mcL (140-400); Red Blood Count 3.39 M/mcL (4.19-5.50)
[2020-04-01 08:03] LABS: BUN/Creatinine Ratio 27 (6-26); Blood Urea Nitrogen 23 mg/dL (8-23); Calcium 8.9 mg/dL (8.6-10.3); Carbon Dioxide 28 mEq/L (23-29); Chloride 107 mEq/L (98-107); Glucose 107 mg/dL (70-105); Osmolality,Calculated 292 (280-300); Potassium 3.6 mEq/L (3.5-5.1); Sodium 139 mEq/L (136-145); eGFR For African Americans > 60 (> 60); eGFR For Non-African Americans > 60 (> 60)
[2020-04-01] MEDS: Losartan/HCTZ 50-12.5 TABLET PO SCH (09:56)
[2020-04-01] MEDS: Aspirin Enteric Coated 81 MG Tablet PO SCH (09:56)
[2020-04-01] MEDS: PARoxetine 20 MG TABLET PO SCH (09:56)
[2020-04-01] MEDS: 0.9 % Sodium Chloride 1,000 ML IVC SCH (13:42)
[2020-04-01] MEDS: *HR* OxyCODONE/APAP 10/325 TABLET PO PRN (17:27)
[2020-04-01] MEDS: Finasteride 5 MG TABLET PO SCH (20:41)
[2020-04-02 01:36] LABS: Hematocrit 30.9 % (37.5-50.1); Hemoglobin 9.9 g/dL (12.9-16.9); Mean Corpuscular Hemoglobin 31.3 pg (28.0-33.3); Mean Corpuscular Volume 97.8 fL (83.0-100.0); Mean Platelet Volume 9.5 fL (9.4-12.4); Platelet Count 310 K/mcL (140-400); Red Blood Count 3.16 M/mcL (4.19-5.50); Red Cell Distribution Width 12.8 % (11.5-14.5); White Blood Count 6.8 K/mcL (4.3-11.1)
[2020-04-02] MEDS: 0.9 % Sodium Chloride 1,000 ML IVC SCH ×3 (01:51→23:52)
[2020-04-02 02:01] LABS: BUN/Creatinine Ratio 38 (6-26); Blood Urea Nitrogen 32 mg/dL (8-23); Calcium 8.4 mg/dL (8.6-10.3); Carbon Dioxide 23 mEq/L (23-29); Chloride 108 mEq/L (98-107); Glucose 117 mg/dL (70-105); Osmolality,Calculated 294 (280-300); Potassium 3.8 mEq/L (3.5-5.1); Sodium 138 mEq/L (136-145); eGFR For African Americans > 60 (> 60); eGFR For Non-African Americans > 60 (> 60)
[2020-04-02] MEDS ORDERED: Povidone-Iodine 45 ML, Sodium Chloride IRRigation 1,000 ML IR ONE (06:00)
[2020-04-02] MEDS ORDERED: Dexamethasone 4 MG/ML VIAL ONE (06:55)
[2020-04-02] MEDS ORDERED: *HR* Rocuronium Bromide 50 MG/5 ML VIAL ONE (06:55)
[2020-04-02] MEDS ORDERED: *HR* Propofol 200 MG/20 ML VIAL IVP ONE (06:55)
[2020-04-02] MEDS ORDERED: Lidocaine -MPF 2% 2 ML VIAL ONE (06:55)
[2020-04-02] MEDS ORDERED: Ondansetron 4 MG/2 ML VIAL ONE (06:55)
[2020-04-02] MEDS ORDERED: *HR* FentaNYL (PF) 100 MCG/2 ML VIAL ONE (06:55)
[2020-04-02] MEDS ORDERED: Ethanol\\Acetic Acid\\Na Ace\\Ben 1,000 ML IRRIG.SOLN IR ONE (07:22)
[2020-04-02] MEDS ORDERED: Vancomycin 1,000 MG VIAL ONE (07:22)
[2020-04-02] MEDS ORDERED: Tranexamic Acid 1,000 MG/10 ML VIAL ONE (07:57)
[2020-04-02] MEDS ORDERED: *HR* PHENYLEPHRINE 1,000 MCG/10 ML SYRINGE IVP ONE (08:13)
[2020-04-02] MEDS: *HR* OxyCODONE/APAP 10/325 TABLET PO PRN ×2 (09:53→10:44)
[2020-04-02] MEDS ORDERED: *HR* Promethazine 25 MG/ML VIAL IVP PRN (10:07)
[2020-04-02] MEDS ORDERED: Ringers Solution, Lactated 1,000 ML IVC SCH (10:07)
[2020-04-02] MEDS ORDERED: Sennosides 8.6 MG TABLET PO PRN (10:07)
[2020-04-02] MEDS ORDERED: MOM Conc 10 ML UD.LIQ PO PRN (10:07)
[2020-04-02] MEDS ORDERED: Ondansetron 4 MG/2 ML VIAL IVP PRN (10:07)
[2020-04-02] MEDS ORDERED: Naloxone 0.4 MG/ML INJ IVP PRN ×2 (10:07)
[2020-04-02] MEDS: Ascorbic Acid 500 MG TABLET PO SCH ×2 (10:44→16:57)
[2020-04-02] MEDS: Multivit/Ca/Min/Fe/FA 1 TAB TABLET PO SCH (10:45)
[2020-04-02] MEDS ORDERED: Ketorolac 30 MG/ML VIAL IVP PRN (13:24)
[2020-04-02] MEDS ORDERED: Vancomycin 1,500 MG/265 ML IV.SOLN IVPB SCH (20:00)
[2020-04-02] MEDS: Finasteride 5 MG TABLET PO SCH (21:40)
[2020-04-03 05:10] LABS: Basophils % 0.2 %; Eosinophils # 0.1 K/mcL (0.0-0.6); Eosinophils % 0.7 %; Hematocrit 27.8 % (37.5-50.1); Hemoglobin 8.6 g/dL (12.9-16.9); Immature Granulocytes % 0.5 % (0-4); Lymphocytes # 1.1 K/mcL (0.6-4.6); Lymphocytes % 10.8 %; Mean Corpuscular HGB Conc 30.9 g/dL (31.6-35.5); Mean Corpuscular Hemoglobin 30.4 pg (28.0-33.3); Mean Corpuscular Volume 98.2 fL (83.0-100.0); Mean Platelet Volume 9.7 fL (9.4-12.4); Monocytes # 1.1 K/mcL (0.0-1.3); Monocytes % 10.4 %; Neutrophils # 8.1 K/mcL (1.6-8.9); Platelet Count 293 K/mcL (140-400); Red Blood Count 2.83 M/mcL (4.19-5.50); Red Cell Distribution Width 12.9 % (11.5-14.5); Segmented Neutrophils % 77.4 %
[2020-04-03 05:24] LABS: BUN/Creatinine Ratio 29 (6-26); Blood Urea Nitrogen 31 mg/dL (8-23); Calcium 8.3 mg/dL (8.6-10.3); Carbon Dioxide 23 mEq/L (23-29); Chloride 106 mEq/L (98-107); Glucose 149 mg/dL (70-105); Osmolality,Calculated 291 (280-300); Potassium 3.7 mEq/L (3.5-5.1); Sodium 136 mEq/L (136-145); eGFR For African Americans > 60 (> 60); eGFR For Non-African Americans > 60 (> 60)
[2020-04-03 05:57] LABS: White Blood Count 10.4 K/mcL (4.3-11.1)
[2020-04-03] MEDS: Losartan/HCTZ 50-12.5 TABLET PO SCH (07:58)
[2020-04-03] MEDS: Ascorbic Acid 500 MG TABLET PO SCH ×2 (07:59→15:29)
[2020-04-03] MEDS: PARoxetine 20 MG TABLET PO SCH (07:59)
[2020-04-03] MEDS: Multivit/Ca/Min/Fe/FA 1 TAB TABLET PO SCH (07:59)
[2020-04-03] MEDS: Aspirin Enteric Coated 81 MG Tablet PO SCH (07:59)
[2020-04-03] MEDS: *HR* OxyCODONE/APAP 10/325 TABLET PO PRN (15:29)
[2020-04-03] MEDS: Cefepime HCl 1,000 MG in 0.9 % Sodium Chloride Mini Bag 100 ML IVPB SCH (20:51)
[2020-04-03] MEDS: Finasteride 5 MG TABLET PO SCH (20:52)
[2020-04-04 02:50] LABS: Basophils % 0.5 %; Eosinophils # 0.3 K/mcL (0.0-0.6); Eosinophils % 3.6 %; Hematocrit 25.3 % (37.5-50.1); Hemoglobin 8.1 g/dL (12.9-16.9); Immature Granulocytes % 0.3 % (0-4); Lymphocytes # 1.8 K/mcL (0.6-4.6); Lymphocytes % 23.3 %; Mean Corpuscular Hemoglobin 30.7 pg (28.0-33.3); Mean Corpuscular Volume 95.8 fL (83.0-100.0); Mean Platelet Volume 9.6 fL (9.4-12.4); Monocytes # 0.9 K/mcL (0.0-1.3); Monocytes % 11.7 %; Neutrophils # 4.6 K/mcL (1.6-8.9); Nucleated Red Blood Cells 0.3 /100 WBC (0); Platelet Count 286 K/mcL (140-400); Red Blood Count 2.64 M/mcL (4.19-5.50); Red Cell Distribution Width 13.1 % (11.5-14.5); Segmented Neutrophils % 60.6 %; White Blood Count 7.5 K/mcL (4.3-11.1)
[2020-04-04 03:10] LABS: BUN/Creatinine Ratio 33 (6-26); Blood Urea Nitrogen 28 mg/dL (8-23); Calcium 8.2 mg/dL (8.6-10.3); Carbon Dioxide 23 mEq/L (23-29); Chloride 109 mEq/L (98-107); Glucose 110 mg/dL (70-105); Osmolality,Calculated 292 (280-300); Potassium 3.7 mEq/L (3.5-5.1); Sodium 138 mEq/L (136-145); eGFR For African Americans > 60 (> 60); eGFR For Non-African Americans > 60 (> 60)
[2020-04-04] MEDS: Cefepime HCl 1,000 MG in 0.9 % Sodium Chloride Mini Bag 100 ML IVPB SCH ×2 (05:20→17:56)
[2020-04-04] MEDS: Aspirin Enteric Coated 81 MG Tablet PO SCH (08:30)
[2020-04-04] MEDS: Ascorbic Acid 500 MG TABLET PO SCH ×2 (08:33→15:58)
[2020-04-04] MEDS: PARoxetine 20 MG TABLET PO SCH (08:33)
[2020-04-04] MEDS: Losartan/HCTZ 50-12.5 TABLET PO SCH (08:33)
[2020-04-04] MEDS: Multivit/Ca/Min/Fe/FA 1 TAB TABLET PO SCH (08:33)
[2020-04-04] MEDS ORDERED: Bisacodyl 10 MG RECTAL SUPPOSITORY RC ONE (14:34)
[2020-04-04] MEDS: Finasteride 5 MG TABLET PO SCH (21:26)
[2020-04-05 01:35] LABS: BUN/Creatinine Ratio 26 (6-26); Blood Urea Nitrogen 22 mg/dL (8-23); Calcium 8.5 mg/dL (8.6-10.3); Carbon Dioxide 22 mEq/L (23-29); Chloride 108 mEq/L (98-107); Glucose 116 mg/dL (70-105); Osmolality,Calculated 292 (280-300); Potassium 3.6 mEq/L (3.5-5.1); Sodium 139 mEq/L (136-145); eGFR For African Americans > 60 (> 60); eGFR For Non-African Americans > 60 (> 60)
[2020-04-05 01:40] LABS: Hematocrit 28.8 % (37.5-50.1); Red Blood Count 2.94 M/mcL (4.19-5.50); White Blood Count 8.1 K/mcL (4.3-11.1)
[2020-04-05 01:41] LABS: Mean Corpuscular HGB Conc 31.3 g/dL (31.6-35.5); Mean Corpuscular Hemoglobin 30.6 pg (28.0-33.3); Mean Platelet Volume 9.7 fL (9.4-12.4); Platelet Count 285 K/mcL (140-400); Red Cell Distribution Width 13.1 % (11.5-14.5)
[2020-04-05] MEDS: Cefepime HCl 1,000 MG in 0.9 % Sodium Chloride Mini Bag 100 ML IVPB SCH ×2 (05:34→16:41)
[2020-04-05] MEDS: Losartan/HCTZ 50-12.5 TABLET PO SCH (09:15)
[2020-04-05] MEDS: Aspirin Enteric Coated 81 MG Tablet PO SCH (09:15)
[2020-04-05] MEDS: PARoxetine 20 MG TABLET PO SCH (09:15)
[2020-04-05] MEDS: Ascorbic Acid 500 MG TABLET PO SCH ×2 (09:15→16:42)
[2020-04-05] MEDS: Multivit/Ca/Min/Fe/FA 1 TAB TABLET PO SCH (09:16)
[2020-04-05] MEDS: Finasteride 5 MG TABLET PO SCH (20:52)
[2020-04-06] MEDS: Cefepime HCl 1,000 MG in 0.9 % Sodium Chloride Mini Bag 100 ML IVPB SCH ×2 (05:32→16:56)
[2020-04-06] MEDS: Multivit/Ca/Min/Fe/FA 1 TAB TABLET PO SCH (08:45)
[2020-04-06] MEDS: Losartan/HCTZ 50-12.5 TABLET PO SCH (08:46)
[2020-04-06] MEDS: PARoxetine 20 MG TABLET PO SCH (08:47)
[2020-04-06] MEDS: Ascorbic Acid 500 MG TABLET PO SCH ×2 (08:48→16:55)
[2020-04-06] MEDS: Aspirin Enteric Coated 81 MG Tablet PO SCH (08:48)
[2020-04-06 09:13] LABS: BUN/Creatinine Ratio 27 (6-26); Blood Urea Nitrogen 21 mg/dL (8-23); Vancomycin,Trough 13 mcg/mL (5-10); eGFR For African Americans > 60 (> 60); eGFR For Non-African Americans > 60 (> 60)
[2020-04-06] MEDS: Finasteride 5 MG TABLET PO SCH (20:08)
[2020-04-07 04:42] LABS: Hematocrit 27.2 % (37.5-50.1); Hemoglobin 8.8 g/dL (12.9-16.9); Mean Corpuscular HGB Conc 32.4 g/dL (31.6-35.5); Mean Corpuscular Hemoglobin 31.3 pg (28.0-33.3); Mean Corpuscular Volume 96.8 fL (83.0-100.0); Mean Platelet Volume 9.6 fL (9.4-12.4); Platelet Count 289 K/mcL (140-400); Red Blood Count 2.81 M/mcL (4.19-5.50); Red Cell Distribution Width 13.1 % (11.5-14.5); White Blood Count 8.6 K/mcL (4.3-11.1)
[2020-04-07 04:58] LABS: BUN/Creatinine Ratio 29 (6-26); Blood Urea Nitrogen 28 mg/dL (8-23); Calcium 9.1 mg/dL (8.6-10.3); Carbon Dioxide 27 mEq/L (23-29); Chloride 105 mEq/L (98-107); Glucose 132 mg/dL (70-105); Osmolality,Calculated 293 (280-300); Potassium 3.7 mEq/L (3.5-5.1); Sodium 138 mEq/L (136-145); eGFR For African Americans > 60 (> 60); eGFR For Non-African Americans > 60 (> 60)
[2020-04-07] MEDS: Cefepime HCl 1,000 MG in 0.9 % Sodium Chloride Mini Bag 100 ML IVPB SCH ×2 (05:13→17:15)
[2020-04-07] MEDS: Aspirin Enteric Coated 81 MG Tablet PO SCH (07:45)
[2020-04-07] MEDS: Losartan/HCTZ 50-12.5 TABLET PO SCH (07:45)
[2020-04-07] MEDS: Ascorbic Acid 500 MG TABLET PO SCH ×2 (07:45→16:42)
[2020-04-07] MEDS: Multivit/Ca/Min/Fe/FA 1 TAB TABLET PO SCH (07:46)
[2020-04-07] MEDS: PARoxetine 20 MG TABLET PO SCH (07:46)
[2020-04-07] MEDS: *HR* OxyCODONE/APAP 10/325 TABLET PO PRN (14:53)
[2020-04-07] MEDS: Finasteride 5 MG TABLET PO SCH (19:50)
[2020-04-08] MEDS: Cefepime HCl 1,000 MG in 0.9 % Sodium Chloride Mini Bag 100 ML IVPB SCH (05:46)
[2020-04-08 05:53] LABS: Basophils # 0.1 K/mcL (0.0-0.2); Basophils % 0.7 %; Eosinophils # 0.5 K/mcL (0.0-0.6); Eosinophils % 6.3 %; Hematocrit 27.7 % (37.5-50.1); Hemoglobin 8.7 g/dL (12.9-16.9); Immature Granulocytes % 0.3 % (0-4); Lymphocytes # 1.6 K/mcL (0.6-4.6); Lymphocytes % 21.4 %; Mean Corpuscular HGB Conc 31.4 g/dL (31.6-35.5); Mean Corpuscular Hemoglobin 30.4 pg (28.0-33.3); Mean Corpuscular Volume 96.9 fL (83.0-100.0); Mean Platelet Volume 9.2 fL (9.4-12.4); Monocytes # 0.8 K/mcL (0.0-1.3); Monocytes % 10.2 %; Neutrophils # 4.5 K/mcL (1.6-8.9); Platelet Count 291 K/mcL (140-400); Red Blood Count 2.86 M/mcL (4.19-5.50); Red Cell Distribution Width 13.2 % (11.5-14.5); Segmented Neutrophils % 61.1 %; White Blood Count 7.4 K/mcL (4.3-11.1)
[2020-04-08 06:14] LABS: BUN/Creatinine Ratio 34 (6-26); Blood Urea Nitrogen 32 mg/dL (8-23); Carbon Dioxide 27 mEq/L (23-29); Chloride 106 mEq/L (98-107); Glucose 124 mg/dL (70-105); Osmolality,Calculated 294 (280-300); Potassium 3.9 mEq/L (3.5-5.1); Sodium 138 mEq/L (136-145); eGFR For African Americans > 60 (> 60); eGFR For Non-African Americans > 60 (> 60)
[2020-04-08 07:13] VITALS: BP 117/68
[2020-04-08] MEDS: PARoxetine 20 MG TABLET PO SCH (09:27)
[2020-04-08] MEDS: Losartan/HCTZ 50-12.5 TABLET PO SCH (09:27)
[2020-04-08] MEDS: Aspirin Enteric Coated 81 MG Tablet PO SCH (09:27)
[2020-04-08] MEDS: Ascorbic Acid 500 MG TABLET PO SCH (09:28)
[2020-04-08] MEDS: Multivit/Ca/Min/Fe/FA 1 TAB TABLET PO SCH (09:28)
[2020-04-08] MEDS: *HR* OxyCODONE/APAP 10/325 TABLET PO PRN (11:08)
[2020-04-08 12:58] LABS: C-Reactive Protein 29 mg/L (Less than 10)
== END 2020-04-08 15:29 ==
LOC: 3NENU 12:01 → EMEROOARM 12:01 → SUATTDRO 13:58 → 3NENU 14:52 → SUATTDRO 03-31 18:35
PROVIDERS: ADMIT Internal Medicine; ATTEND Internal Medicine